=== PATIENT | male | born 1940 | race Caucasian/White ===

== ENCOUNTER 2019-01-18 21:04 | Emergency (ER) | payer MEDICARE, OTHER ==
--- NOTE | 2019-01-18 21:31 | ER Document Report ---
ED Medical Screen (RME) - General Chief Complaint: Shortness Of Breath Stated Complaint: CONGESTION/SHORTNESS OF BREATH Time Seen by Provider: 01/18/19 21:27 Mode of Arrival: Ambulatory Information source: Patient Notes: 78-year-old male with history of cardiac disease open heart presents the emergency department with complaints of difficulty breathing shortness of breath. Reports symptoms started after dinner tonight at 1800. Patient reports he has a history of this history of bronchitis. Respiratory with rhonchi tachypneic, Short of breath. I have greeted and performed a rapid initial assessment of this patient. A comprehensive ED assessment and evaluation of the patient, analysis of test results and completion of the medical decision making process will be conducted by additional ED providers. Dictation of this chart was performed using voice recognition software; therefore, there may be some unintended grammatical errors. TRAVEL OUTSIDE OF THE [place] IN LAST 30 DAYS: No - Related Data Allergies/Adverse Reactions: Latex, Natural Rubber Allergy (Verified 01/18/19 21:27) Past Medical History - Past Medical History Cardiac Medical History: Reports: Hx Coronary Artery Disease, Hx Heart Attack - 2013, Hx Hypercholesterolemia, Hx Hypertension Endocrine Medical History: Denies: Hx Diabetes Mellitus Type 1 Renal/ Medical History: Reports: Hx Benign Prostatic Hyperplasia Past Surgical History: Reports: Hx Cardiac Catheterization, Hx Cardiac Surgery - Bypass, Hx Coronary Artery Bypass Graft - 05/05/2013 at [facility] Physical Exam - Vital signs Vitals: Temp Pulse Resp BP Pulse Ox 97.5 F 89 18 191/96 H 92 01/18/19 21:13 01/18/19 21:13 01/18/19 21:13 01/18/19 21:13 01/18/19 21:13 Course - Vital Signs Vital signs: Temp Pulse Resp BP Pulse Ox 97.5 F 89 18 191/96 H 92 01/18/19 21:13 01/18/19 21:13 01/18/19 21:13 01/18/19 21:13 01/18/19 21:13
[2019-01-18 21:58] LABS: ABSOLUTE EOSINOPHILS # (AUTO) 0.3 10^3/uL (0.0-0.6); EOSINOPHILS % (AUTO) 2.5 % (0-6); TOTAL CELLS COUNTED % (AUTO) 100 %; WHITE BLOOD COUNT 11.8 10^3/uL (4.0-10.5)
[2019-01-18 22:00] LABS: ABSOLUTE LYMPHOCYTES (AUTO) 5.2 10^3/uL (0.5-4.7); ABSOLUTE MONOCYTES (AUTO) 0.8 10^3/uL (0.1-1.4); ABSOLUTE NEUT (AUTO) 5.4 10^3/uL (1.7-8.2); BASOPHILS % (AUTO) 0.3 % (0-2); HEMATOCRIT 47.9 % (37.9-51.0); HEMOGLOBIN 16.2 g/dL (13.5-17.0); LYMPHOCYTES % (AUTO) 43.9 % (13-45); MEAN CORPUSCULAR HEMOGLOBIN 30.3 pg (27.0-33.4); MEAN CORPUSCULAR HGB CONC 33.9 g/dL (32.0-36.0); MEAN CORPUSCULAR VOLUME 89 fl (80-97); PLATELET COUNT 220 10^3/uL (150-450); RED BLOOD COUNT 5.36 10^6/uL (4.35-5.55); RED CELL DISTRIBUTION WIDTH 13.6 % (11.5-14.0); SEGMENTED NEUTROPHILS % (AUTO) 46.3 % (42-78)
[2019-01-18 22:11] LABS: ALBUMIN 5.1 g/dL (3.5-5.0); ALKALINE PHOSPHATASE 85 U/L (38-126); ANION GAP 14 (5-19); ASPARTATE AMINO TRANSFERASE 37 U/L (17-59); BILIRUBIN,DIRECT 0.2 mg/dL (0.0-0.4); BILIRUBIN,TOTAL 0.5 mg/dL (0.2-1.3); BLOOD UREA NITROGEN 24 mg/dL (7-20); CALCIUM 10.6 mg/dL (8.4-10.2); CARBON DIOXIDE 26 mmol/L (22-30); CHLORIDE 103 mmol/L (98-107); GLUCOSE 115 mg/dL (75-110); POTASSIUM 4.3 mmol/L (3.6-5.0); TOTAL PROTEIN 8.4 g/dL (6.3-8.2)
--- NOTE | 2019-01-18 22:16 | RADIOLOGY REPORT (SQ) ---
EXAM DESCRIPTION: XR CHEST 1 VIEW COMPLETED DATE/TME: 01/18/2019 21:29 CLINICAL HISTORY: 78 years, Male, cough, sob COMPARISON: Multiple priors, most recent from 07/15/2015 NUMBER OF VIEWS: One TECHNIQUE: Single frontal view of the chest was obtained portably LIMITATIONS: None. FINDINGS: Status post median sternotomy. Cardiac and mediastinal contours are stable. Lungs are clear. No pleural effusion or pneumothorax. IMPRESSION: No acute disease. copyright 2010 [employer]- All Rights Reserved
[2019-01-18] MEDS ORDERED: METHYLPREDNISOLONE INJ 125 MG/2 ML SDV IV ONE (22:33)
[2019-01-18] MEDS ORDERED: ALBUTEROL SULFATE 0.083% NEB 2.5 MG/3 ML AMPUL NEB ONE (22:33)
[2019-01-18] MEDS ORDERED: IPRATROPIUM/ALBUTEROL 0.5-2.5 MG/3 ML AMPUL NEB ONE (22:34)
--- NOTE | 2019-01-18 22:48 | ER Document Report ---
ED General - General Chief Complaint: Shortness Of Breath Stated Complaint: CONGESTION/SHORTNESS OF BREATH Time Seen by Provider: 01/18/19 21:27 Mode of Arrival: Ambulatory Notes: 78 year old male presents to the ED complaining of cough, congestion and shortness of breath starting this evening just after dinner. He denies any chest pain, denies any fevers. Denies any other symptoms. Admits to a productive cough. TRAVEL OUTSIDE OF THE [place] IN LAST 30 DAYS: No - Related Data Allergies/Adverse Reactions: Latex, Natural Rubber Allergy (Verified 01/18/19 21:27) Past Medical History - General Information source: Patient - Social History Smoking Status: Former Smoker Cigarette use (# per day): No Frequency of alcohol use: Occasional Drug Abuse: None Family History: Reviewed & Not Pertinent Patient has suicidal ideation: No Patient has homicidal ideation: No - Past Medical History Cardiac Medical History: Reports: Hx Coronary Artery Disease, Hx Heart Attack - 2013, Hx Hypercholesterolemia, Hx Hypertension Endocrine Medical History: Denies: Hx Diabetes Mellitus Type 1 Renal/ Medical History: Reports: Hx Benign Prostatic Hyperplasia Past Surgical History: Reports: Hx Cardiac Catheterization, Hx Cardiac Surgery - Bypass, Hx Coronary Artery Bypass Graft - 05/05/2013 at [facility] Review of Systems - Review of Systems Constitutional: No symptoms reported EENT: See HPI, Nose congestion Cardiovascular: No symptoms reported Respiratory: See HPI Gastrointestinal: See HPI -: Yes All other systems reviewed and negative Physical Exam - Vital signs Vitals: Temp Pulse Resp BP Pulse Ox 97.5 F 89 18 191/96 H 92 01/18/19 21:13 01/18/19 21:13 01/18/19 21:13 01/18/19 21:13 01/18/19 21:13 Interpretation: Hypertensive - Notes Notes: GENERAL: Alert, interacts well. No acute distress. HEAD: Normocephalic, atraumatic EYES: Pupils equal, round and reactive to light, extraocular movements intact. ENT: Oral mucosa moist, tongue midline. NECK: Full range of motion, supple, trachea midline. LUNGS: Expiratory wheezing, inspiratory rhonchi, mildly tachypnea, appears mildly short of breath, no accessory muscles of respiration being used. HEART: Regular rate and rhythm, no murmurs, gallops, rubs. ABDOMEN: Soft, nontender, nondistended, bowel sounds present in all 4 quadrants. EXTREMITIES: Moves all 4 extremities spontaneously, no edema, radial and dorsalis pedis pulses 2/4 bilaterally. No cyanosis. NEUROLOGICAL: Alert and oriented x3, normal speech, biceps and patellar DTRs 2+ bilaterally. PSYCH: Normal mood, normal affect. SKIN: Warm, Dry, normal turgor, no rashes or lesions noted. Course - Re-evaluation Re-evalutation: 01/18/19 23:52 CBC shows slight leukocytosis 11.8, no anemia, CMP has some slight abnormality such as slightly elevated calcium at 10.6, proBNP is normal, troponin is negative, EKG is nonischemic but it does show new bundle branch block, right- sided, at but no significance, chest x-ray unremarkable. Patient will be given albuterol inhaler, steroids and incentive spirometer. Patient is significantly improved after 2 breathing treatments. Patient will be discharged to home. Likely acute wheezy bronchitis, viral in nature, no antibiotics indicated. - Vital Signs Vital signs: Temp Pulse Resp BP Pulse Ox 97.5 F 89 19 145/87 H 95 01/18/19 21:13 01/18/19 21:13 01/18/19 22:01 01/18/19 22:01 01/18/19 22:01 - Laboratory Result Diagrams: 01/18/19 21:40 01/18/19 21:40 Laboratory results interpreted by me: 01/18/19 01/18/19 21:40 21:40 WBC 11.8 H Absolute Lymphs (auto) 5.2 H BUN 24 H Glucose 115 H Calcium 10.6 H Total Protein 8.4 H Albumin 5.1 H - EKG Interpretation by Me Additional EKG results interpreted by me: 01/18/19 23:52 EKG shows sinus rhythm at a rate of 80, first-degree AV block, 1 PVC, no ST segment elevations or depressions per my interpretation. Discharge - Discharge Clinical Impression: Acute wheezy bronchitis Condition: Stable Disposition: HOME, SELF-CARE Additional Instructions: Bronchitis with Bronchospasm (Wheezing) You have bronchitis with bronchospasm (wheezing). Sometimes people develop wheezing with a chest cold. This occurs either because of an underlying tendency toward asthma or because the virus itself irritates the bronchial tubes. This irritation causes cough, shortness of breath, and wheezing. Emergency treatment of bronchospasm may include adrenaline shots or bronc hodilator aerosol. You may feel lightheaded and have a rapid pulse for an hour or two. Rest and get plenty of fluids. At home, we'll treat you with a bronchodilator inhaler. Corticosteroids may be required for some patients. Until you recover, avoid chemical fumes, dusts, pollens, and exercising in very cold or dry air. If you smoke, stop now! Most cases of bronchitis get better without antibiotics. We prescribe antibiotics when we believe bacteria are damaging your airways, or if there's high risk the bronchitis will worsen into pneumonia. Increase your fluid intake. A cool mist humidifier may make your lungs more comfortable. An expectorant (cough medicine that loosens phlegm) can help. Repeated episodes of bronchitis and bronchospasm may result in lung damage -- for example, chronic bronchitis, recurrent pneumonias, or emphysema. If you develop a fever, increased wheezing, chest pain, or severe shortness of breath, you should contact the doctor immediately. If in 10 days you are still having symptoms please follow-up with your primary care physician as you may need antibiotics at that point. Currently you do not need any antibiotics. Please use the inhaler 2 puffs every 4 hours as needed while you are awake. Please take the steroids as directed until they are gone. Please use the incentive spirometer once an hour while you are awake. Prescriptions: Prednisone [Deltasone 20 mg Tablet] 2 tab PO DAILY 5 Days tablet Referrals: [facility] [Primary Care Provider] - Follow up as needed
--- NOTE | 2019-01-18 22:50 | EKG REPORT ---
SEVERITY:- ABNORMAL ECG - SINUS RHYTHM VENTRICULAR PREMATURE COMPLEX FIRST DEGREE AV BLOCK RIGHT BUNDLE BRANCH BLOCK OLD INFERIOR AK : Confirmed by: Ulisses Vázquez MD 18-Jan-2019 22:49:19
[2019-01-18] MEDS ORDERED: ALBUTEROL SULFATE HFA (90 MCG/PUFF) 8 GM MDI (1 MDI/ER DISP) IH ONE (23:37)
[2019-01-19 00:29] VITALS: BP 156/81
== END 2019-01-19 00:29 | disposition home or self-care (01) ==
LOC: ER 21:04
DX: J20.9 Acute bronchitis, unspecified (principal); R06.02 Shortness of breath; R05 Cough; R09.81 Nasal congestion; I25.10 Atherosclerotic heart disease of native coronary artery without angina pectoris; I44.0 Atrioventricular block, first degree; I49.3 Ventricular premature depolarization; I10 Essential (primary) hypertension; D72.829 Elevated white blood cell count, unspecified; I45.10 Unspecified right bundle-branch block; Z91.040 Latex allergy status
CPT/HCPCS: 93005; 94640 ×2; 99285; 96374; 36415; 85025; 80053; 84484; 83880; 71045; 93010; J2930; A9270 ×3; J3490; J7620